=== PATIENT | male | born 1935 | race Caucasian/White ===

== ENCOUNTER 2023-10-04 03:40 | Inpatient (IN) | payer MEDICARE, OTHER, SELFPAY ==
[2023-10-04] VITALS (23 sets, daily range): BP systolic 94–135; BP diastolic 57–88; PULSE 93–118; RESP 18–39; TEMP 36.4–37.2; O2SAT 91–97; BMI 26.6
--- NOTE | 2023-10-04 | DI.RAD.S_ITS ---
PROCEDURE: XR CHEST 1V INDICATIONS: pneumonia TECHNIQUE: One view of the chest was acquired. COMPARISON: None. FINDINGS: Surgical changes and devices: None. Lungs and pleura: Left mid to lower lung zone opacities. Small left pleural effusion. Right lung is clear. No pneumothorax. Mediastinum: Mediastinal contours appear normal. Heart size is normal. Bones and chest wall: No suspicious bony lesions. Overlying soft tissues appear unremarkable. IMPRESSION: Left basilar opacities are suspicious for pneumonia or aspiration. Small left pleural effusion. Approved by: Santiago Sol M.D. on 10/04/2023 at 8:09
[2023-10-04] MEDS: SODIUM CHLORIDE 0.9% 250 ML 21 ML IV (05:53)
[2023-10-04] MEDS: cefTRIAXone 1,000 MG in SODIUM CHLORIDE 0.9% 100 ML 200 MG IV (05:53)
[2023-10-04 06:28] LABS: Allen Test for ABG Passed? Yes, Passed; Blood Gas Collection Site Right Brachial; Fractionated Inspired Oxygen 28; HCO3 ABG 38 mmol/L (23-27); Oxygen Saturation ABG 89 % (95-100); PCO2 ABG 56.7 mmHg (35-45); PO2 ABG 57 mmHg (80-100); TCO2 ABG 40 mmol/L (23-27); pH ABG 7.44 (7.35-7.45)
[2023-10-04 06:35] LABS: Add Manual Diff / Slide Review NO; Basophils Absolute Auto 100 /uL (0-100); Basophils Percent Auto 0.5 % (0-2); Eosinophils Absolute Auto 100 /uL (0-450); Eosinophils Percent Auto 0.5 % (2-4); Hematocrit 36.7 % (41-53); Hemoglobin 12.4 g/dL (13.5-17.5); Lymphocytes Absolute Auto 600 /uL (1100-4500); Lymphocytes Percent Auto 4.6 % (25-40); Mean Corpuscular HGB Conc 33.7 % (30-36); Mean Corpuscular Hemoglobin 30.1 PG (26-34); Mean Corpuscular Volume 89.4 fL (80-100); Monocytes Absolute Auto 1000 /uL (0-900); Monocytes Percent Auto 7.7 % (3-14); Neutrophils Absolute Auto 11100 /uL (1500-7000); Neutrophils Percent Auto 86.7 % (50-75); Platelet Count 306 X10^3/uL (150-400); Red Cell Distribution Width 13.1 % (11.6-14.8); White Blood Cell Count 12.8 X10^3/uL (4.5-11.0)
[2023-10-04 06:44] LABS: BUN Creatinine Ratio 15.8 (6-22); Blood Urea Nitrogen 12 mg/dL (9-20); Calcium 9.3 mg/dL (8.4-10.2); Chloride 86 mmol/L (98-107); Estimated Glomerular Filt Rate > 60 mL/min (>60); Glucose 202 mg/dL (80-110); HEMOLYSIS < 15 (0-50); Lactate (Lactic Acid) 2.1 mmol/L (0.7-2.1); Potassium 4.3 mmol/L (3.4-5.1); Sodium 126 mmol/L (137-145)
--- NOTE | 2023-10-04 06:49 | PC.ADMIT ---
[facility] Admission Note: The patient,Marino Roberts,88 y/o, was given written information regarding hospital policies, unit procedures and contact persons. Patient's smoking status: Former smoker. Vital Signs - 8 hr 10/04/23 05:00 10/04/23 05:05 10/04/23 05:28 Temperature 97.6 F Pulse Rate 103 H 109 H Respiratory Rate 18 39 H Blood Pressure 121/57 L Pulse Oximetry 94 97 Oxygen Delivery Method Nasal Cannula Nasal Cannula Humidification Oxygen Flow Rate 4 4 Fraction of Inspired Oxygen 36 10/04/23 06:23 Temperature Pulse Rate 103 H Respiratory Rate 20 Blood Pressure 135/68 Pulse Oximetry 97 Oxygen Delivery Method Oxygen Flow Rate 2 Fraction of Inspired Oxygen Patient is a Direct Admit from [place]. Brought to ICU room 228 at 0440. Oriented to self and situation, would reorient to place, month, and year when reminded, speech is delayed. Initially on 4L NC, SpO2 99%, able to titrated O2 down to 2L. ST 1st AVB, BBB, other vitals stable, see trends. Denies pain or shortness of breath, lung sounds exp wheezes throughout, except dim posterior LLL, loose non-productive cough. Condom catheter placed. Hospitalist saw patient via monitor. ABG done, labs drawn. ceftriaxone started.
[2023-10-04 06:53] LABS: MRSA (Nasal) PCR NOT DETECTED (Not Detect)
[2023-10-04 06:56] LABS: Carbon Dioxide 40 mmol/L (22-32)
--- NOTE | 2023-10-04 07:12 | P.HP_ITS ---
History of Present Illness History of Present Illness Date Patient Seen: 10/04/23 Time Patient Seen: 06:00 Chief complaint: Full code Narrative: 88 y/o with PMH of HTN, DM, VTE and recent COVID, had course of Paxlovid a month ago, who presented to [facility] ED with EMS called by patient's daughter. She reported on him having worsening cough and shortness of breath in the last several days, being confused, taking his 's oxygen. Today his was medevac to another hospital with pneumonia and respiratory failure. He was requiring 4 L of oxygen in the ED and I was asked to directly admit him to ICU for pending respiratory failure. On admission he is unreliable historian, likely encephalopathic, tachypneic and tachycardic but not hypotensive. [facility] Social History household members: spouse and children Smoking Status: Former smoker alcohol intake: never Meds Home Medications and Allergies Home Medications Medication Instructions Recorded Confirmed Type TRIAMCINOLONE ACETONIDE 0.1 TP BID ##0 08/21/10 History (#ARISTOCORT) Verapamil HCl (#VERAPAMIL HCL) 240 mg PO Q DAY ##0 08/21/10 History almotriptan malate 12.5 mg tablet 12.5 mg PO PRN ##0 08/21/10 History (Axert) aspirin 81 mg tablet,delayed 81 mg PO QDAY ##0 08/21/10 History release Allergies Allergy/AdvReac Type Severity Reaction Status Date / Time INGREDIENT: NKDA - NO KNOWN Allergy Unknown Uncoded 08/03/17 12:18 DRUG ALLERGIES Review of Systems Review of Systems Narrative: Unobtainable due to encephalopathy Exam Vital Signs (past 8 hours): - 10/04/23 05:00 10/04/23 05:05 10/04/23 05:28 Temperature 97.6 F Pulse Rate 103 H 109 H Respiratory Rate 18 39 H Blood Pressure 121/57 L Pulse Oximetry 94 97 Oxygen Delivery Method Nasal Cannula Nasal Cannula Humidification Oxygen Flow Rate 4 4 Fraction of Inspired Oxygen 36 10/04/23 06:23 Temperature Pulse Rate 103 H Respiratory Rate 20 Blood Pressure 135/68 Pulse Oximetry 97 Oxygen Delivery Method Oxygen Flow Rate 2 Fraction of Inspired Oxygen Fraction of Inspired Oxygen 36 SaO2/FiO2 Ratio 261 Oxygen Delivery Method Nasal Cannula,Humidification Oxygen Flow Rate 2 Const Other: not in distress HENMT Other: normocephalic Neck Other: supple Resp Other: tachypnea, rhonchi Cardio Other: borderline tachycardic, regular Extrem Other: w/o swelling Psych Other: encephalopathic Objective Labs 10/04/23 06:17 10/04/23 06:17 Labs: Laboratory Results - last 24 hr 10/04/23 10/04/23 10/04/23 05:00 06:03 06:17 WBC 12.8 H RBC 4.10 L Hgb 12.4 L Hct 36.7 L MCV 89.4 MCH 30.1 MCHC 33.7 RDW 13.1 Plt Count 306 Neut % (Auto) 86.7 H Lymph % (Auto) 4.6 L [place] % (Auto) 7.7 Eos % (Auto) 0.5 L Baso % (Auto) 0.5 Neut # (Auto) 32978 H Lymph # (Auto) 600 L [place] # (Auto) 1000 H Eos # (Auto) 100 Baso # (Auto) 100 ABG Sample Site Right brachial ABG pH 7.44 ABG pCO2 56.7 H ABG pO2 57 L ABG HCO3 38 H ABG Total CO2 40 H ABG O2 Saturation 89 L ABG Base Excess 14.0 H FiO2 28 Sodium 126 L Potassium 4.3 Chloride 86 L Carbon Dioxide 40 H* BUN 12 Creatinine 0.76 Estimated GFR > 60 BUN/Creatinine Ratio 15.8 Glucose 202 H Lactate 2.1 Calcium 9.3 Magnesium 2.0 Nasal Screen MRSA (PCR) Not detected Assessment & Plan Assessment and plan (1) Acute hypoxemic respiratory failure: Status: Acute (2) Pneumonia: Status: Acute (3) Diabetes: Status: Acute (4) HTN (hypertension): Status: Acute (5) Acute metabolic encephalopathy: Status: Acute (6) Hyponatremia: Status: Acute Assessment & Plan narrative: LLL PNA, Parapneumonic Effusion, Acute Hypoxemic Respiratory Failure - recent COVID - started on Rocephin and Zithromax in ED, to continue with Zosyn and vancomycin - 2 BCs taken at [facility] pending - O2 for sats > 92%, 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
--- NOTE | 2023-10-04 07:56 | P.HP_ITS ---
History of Present Illness History of Present Illness Date Patient Seen: 10/04/23 Chief complaint: Full code Narrative: From night doctor: 88 y/o with PMH of HTN, DM, VTE and recent COVID, had course of Paxlovid a month ago, who presented to [facility] ED with EMS called by patient's daughter. She reported on him having worsening cough and shortness of breath in the last several days, being confused, taking his 's oxygen. Today his was medevac to another hospital with pneumonia and respiratory failure. He was requiring 4 L of oxygen in the ED and I was asked to directly admit him to ICU for pending respiratory failure. On admission he is unreliable historian, likely encephalopathic, tachypneic and tachycardic but not hypotensive. Additional information: The patient really is unable to provide any additional information. He has not sure if he was in the hospital currently were at home. He can not really speak to his current symptoms or what has been happening recently. He appears chronically ill, dehydrated, and comfortable on 2 L of oxygen with nonlabored breathing. [facility] Social History household members: spouse and children Smoking Status: Former smoker alcohol intake: never Meds Home Medications and Allergies Home Medications Medication Instructions Recorded Confirmed Type TRIAMCINOLONE ACETONIDE 0.1 TP BID ##0 08/21/10 History (#ARISTOCORT) Verapamil HCl (#VERAPAMIL HCL) 240 mg PO Q DAY ##0 08/21/10 History almotriptan malate 12.5 mg tablet 12.5 mg PO PRN ##0 08/21/10 History (Axert) aspirin 81 mg tablet,delayed 81 mg PO QDAY ##0 08/21/10 History release Allergies Allergy/AdvReac Type Severity Reaction Status Date / Time No Known Drug Allergies Allergy Verified 10/04/23 08:07 Review of Systems Review of Systems Narrative: Not really obtainable due to his somnolence and lack of general participation in answering questions. Exam Vital Signs (past 8 hours): - 10/04/23 05:00 10/04/23 05:05 10/04/23 05:28 Temperature 97.6 F Pulse Rate 103 H 109 H Respiratory Rate 18 39 H Blood Pressure 121/57 L Pulse Oximetry 94 97 Oxygen Delivery Method Nasal Cannula Nasal Cannula Humidification Oxygen Flow Rate 4 4 Fraction of Inspired Oxygen 36 10/04/23 06:23 Temperature Pulse Rate 103 H Respiratory Rate 20 Blood Pressure 135/68 Pulse Oximetry 97 Oxygen Delivery Method Oxygen Flow Rate 2 Fraction of Inspired Oxygen Fraction of Inspired Oxygen 36 SaO2/FiO2 Ratio 261 Oxygen Delivery Method Nasal Cannula,Humidification Oxygen Flow Rate 2 Narrative Exam Narrative: NAD, somnolent but arousable. He appears dehydrated and chronically ill. He was not labored in breathing in his on 2 L of oxygen. Normocephalic skull, EOMI, anicteric sclera, symmetric pupils. Oropharynx unremarkable, no droop. Neck supple, midline trachea, no adenopathy. Lungs with diminished breath sounds and some wheezing, normal rate and effort. Heart regular, no murmur gallop or rub. Abdomen is soft, non distended and non tender. Extremities are free of edema. Skin is free of rash or lesions. Joints are not swollen or deformed. Judgment appears to be abnormal. Objective Imaging Chest x-ray: Radiologist's impression: Left basilar opacities are suspicious for pneumonia or aspiration. Small left pleural effusion. Labs 10/04/23 06:17 10/04/23 06:17 Labs: Laboratory Results - last 24 hr 10/04/23 10/04/23 10/04/23 05:00 06:03 06:17 WBC 12.8 H RBC 4.10 L Hgb 12.4 L Hct 36.7 L MCV 89.4 MCH 30.1 MCHC 33.7 RDW 13.1 Plt Count 306 Neut % (Auto) 86.7 H Lymph % (Auto) 4.6 L [place] % (Auto) 7.7 Eos % (Auto) 0.5 L Baso % (Auto) 0.5 Neut # (Auto) 59032 H Lymph # (Auto) 600 L [place] # (Auto) 1000 H Eos # (Auto) 100 Baso # (Auto) 100 ABG Sample Site Right brachial ABG pH 7.44 ABG pCO2 56.7 H ABG pO2 57 L ABG HCO3 38 H ABG Total CO2 40 H ABG O2 Saturation 89 L ABG Base Excess 14.0 H FiO2 28 Sodium 126 L Potassium 4.3 Chloride 86 L Carbon Dioxide 40 H* BUN 12 Creatinine 0.76 Estimated GFR > 60 BUN/Creatinine Ratio 15.8 Glucose 202 H Lactate 2.1 Calcium 9.3 Magnesium 2.0 Nasal Screen MRSA (PCR) Not detected Assessment & Plan Assessment & Plan narrative: 1. Recent Covid pneumonia (postiive August 29) 2. Pneumonia, present on admission and active. 3. Acute hypoxic respiratory failure, present on admission and active. 4. Hypovolemic hyponatremia, present on admission and active. 5. Sacral decubitus, present on admission and active. 6. Acute metabolic encephalopathy, present on admission and active. Plan: -IV antibiotics and blood cultures. -CT PA to rule out pulmonary embolism and evaluate the lung parenchyma. -normal saline infusion and monitor sodium and encephalopathy. He had a false to full resuscitation. We will attempt to reach his . Time Spent With Patient Time with patient: 30 to 49 minutes with 50% spent counseling/coordinating care Quality MIPS - Admit I confirm the patient?s Advance Care Plan is present, Code status is documented, Surrogate decision maker is in patient?s record [If Yes, STOP here]: No The patient?s Advance Care plan is not present because I confirmed today that the patient does not wish or was not able to name a surrogate decision maker or provide an Advance Care Plan.: Yes [facility] - Meds 'Current medications' to include all prescriptions, [id number] products, herbals, cannabis/cannabidiol products, and vitamin/mineral/dietary (nutritional) supplements. I have utilized all available resources to obtain, update, or review the patient?s current medications. [If Yes, STOP here]: Yes
--- NOTE | 2023-10-04 07:59 | DI.ECHO.S_ITS ---
[place] [facility] [facility] : : [id number] : [place] : : [id number] : : Phone: [phone] Echocardiogram Report + + :Name: MILO PURCELL Study Date: 10/04/2023 Height: 71.5 in: :[facility] ReadingLocation: Weight: 196 lb : : Gender: Male BSA: 2.1 m2 : :: 1935 Age: 88 yrs BP: 113/62 mmHg: :Reason For Study: DYSPNEA : :Ordering Physician: BETHANY, : :SARAH Meyer Performed By: Michell Philippe : :Referring: SARAH BILLINGS : + + Interpretation Summary This is a technically difficult study characterized by limited endocardial visualization. Next time consider Definity echo contrast. Indeterminate tachycardic rhythm with wide QRS complexes. Normal LV size and mildly increased wall thickness. Normal wall motion and LV systolic function. Ejection fraction is 65-70%. Moderate right ventricular enlargement with evidence of Heaton sign concerning for pulmonary embolism. Aortic valve leaflets are mildly thickened and calcified but open well. Unable to estimate PA systolic pressure due to lack of significant tricuspid regurgitant jet. No prior study available for comparison. Procedure: A two-dimensional transthoracic echocardiogram with color flow and Doppler was performed. The study quality was technically difficult. Most of the acoustic windows were suboptimal, but the best imaging was obtained from the subcostal window. There is no prior echocardiogram noted for this patient. The heart rate ranged between 100-107 bpm during the study. Left Ventricle: The left ventricle is normal in size. There is mild concentric left ventricular hypertrophy. The left ventricle is hyperdynamic. The ejection fraction is estimated to be 65-70%. Diastolic function could not be accurately assessed due to tachycardia. Right Ventricle: The right ventricle is moderately dilated. The right ventricular systolic function is normal. Atria: The left atrial size is normal. The right atrium is mildly dilated. There is no Doppler evidence for an interatrial shunt. Mitral Valve: The mitral valve is normal in structure and function. There is trace mitral regurgitation. Aortic Valve: The aortic valve opens well. There is no aortic valve stenosis. No aortic regurgitation is present. Tricuspid Valve: The tricuspid valve leaflets are thin and pliable. Pulmonary artery pressures cannot be estimated because of the lack of a measurable TR jet velocity. No tricuspid regurgitation. Pulmonic Valve: The pulmonic valve is not well visualized. Great Vessels: The aortic root is normal size. The ascending aorta could not be visualized. The IVC is dilated (diameter is greater than 2.1 cm) yet it collapses greater than 50% with a sniff. This suggests a right atrial pressure of 8 mm Hg. Pericardium/ Pleura There is no pericardial effusion. There is no pleural effusion. MMode/2D Measurements & Calculations LVIDd: 4.2 cm LVOT diam: 2.1 cm LVIDs: 2.8 cm Ao root diam: 3.4 cm FS: 32.6 % IVSd: 1.1 cm LVPWd: 1.1 cm LV marquez. diameter/BSA (cm/m^2): 2.0 LV sys. diameter/BSA (cm/m^2): 1.3 LA A2 area: 19.9 cm2 RA long axis: 5.6 cm LA A4 area: 17.6 cm2 RA area: 22.7 cm2 LA length (vol): 5.0 cm RA vol: 78.3 ml LA vol: 59.2 ml RA : 37.2 ml/m2 LA vol index: 28.1 ml/m2 IVC diam: 2.9 cm RVD1 (basal): 4.4 cm RVD2 (mid): 3.7 cm TAPSE: 2.0 cm Doppler Measurements & Calculations Ao V2 max: 150.2 cm/sec LVOT Max Devon: 128.6 cm/sec Ao V2 mean: 114.5 cm/sec LV V1 max P.6 mmHg Ao max P.0 mmHg LV V1 VTI: 22.1 cm Ao mean P.6 mmHg ELISE(I,D): 3.1 cm2 Ao V2 VTI: 24.8 cm ELISE(V,D): 3.0 cm2 sev ratio: 0.89 ELISE indexed to BSA (cm^2/m^2): 1.5 Med Peak E' Devon: 16.0 cm/sec PA V2 max: 127.3 cm/sec Lat Peak E' Devon: 9.4 cm/sec PA V2 mean: 88.5 cm/sec PA mean P.6 mmHg PA pr(Accel): 43.0 mmHg SV(LVOT): 77.0 ml Electronically signed by: Myriam Curtis M.D. on Reading Physician:10/04/2023 03:14 PM
[2023-10-04 08:04] LABS: Reflexed Lactate in 2 Hours Y
[2023-10-04] MEDS: SODIUM CHLORIDE 0.9% 1,000 ML 100 ML IV ×2 (08:17→18:07)
[2023-10-04] MEDS: ENOXAPARIN 40 MG/0.4 ML SYRINGE SUBCUT (08:17)
[2023-10-04 08:26] LABS: Hemoglobin A1C% w Est Avg Glu 7.2 % (4.0-6.0)
[2023-10-04 08:31] LABS: Sodium Urine Random 10 mmol/L (30-90)
[2023-10-04 08:59] LABS: Lactate 2HR (Lactic Acid Rflx) 1.8 mmol/L (0.7-2.1)
[2023-10-04] MEDS: PIPERACILLIN/TAZO 4.5 GM in SODIUM CHLORIDE 0.9% 100 ML IV (09:03)
[2023-10-04] MEDS: SODIUM CHLORIDE 0.9% FLUSH 10 ML IV ×2 (09:14→20:19)
[2023-10-04] MEDS: VANCOMYCIN 2,000 MG/400 ML PIGGYBACK 200 MG IV (09:17)
[2023-10-04] MEDS: ASPIRIN EC 81 MG TABLET PO (09:18)
[2023-10-04] MEDS: ALBUTEROL/IPRATROPIUM 3 ML AMPUL INH ×5 (09:46→23:53)
--- NOTE | 2023-10-04 11:18 | DI.CT.S_ITS ---
PROCEDURE: CT ANGIO CHEST PE PROTOCOL INDICATIONS: Hypoxia TECHNIQUE: After the administration of intravenous contrast, 2 mm thick sections acquired from the pulmonary apices to the posterior costophrenic angles. 3-dimensional maximum intensity projection (MIP) coronal and sagittal reformats were then acquired through the thorax. For radiation dose reduction, the following was used: automated exposure control, adjustment of mA and/or kV according to patient size. COMPARISON: [facility], CR, XR CHEST 1V, 10/04/2023, 6:57. FINDINGS: Image quality: Diagnostic. Pulmonary arteries: Pulmonary arteries are normal in size, and demonstrate no intraluminal filling defects to suggest central pulmonary embolism. Lower Neck: No enlarged lymph nodes. Thyroid: No thyroid nodules which require sonographic follow up, per consensus guidelines. Axillae: No enlarged lymph nodes. Chest Wall: Unremarkable. Bones: Unremarkable. Lungs and Pleura: Small to moderate left pleural effusion. There is dense consolidation in the posterior left lower lobe. Mild dependent atelectasis is seen in the remainder of the lungs. Heart: Heart size is normal. No pericardial effusion. Mild coronary artery calcifications. Thoracic Vessels: No aortic aneurysm. Mediastinum and Jessi: No enlarged lymph nodes. Esophagus: No wall thickening. No hiatal hernia. Upper Abdomen: Visualized upper abdomen solid organs and bowel loops appear normal. Simple cyst is seen at the superior pole of left kidney. IMPRESSION: 1. No acute pulmonary embolus. 2. Left lower lobe consolidation is suspicious for aspiration or pneumonia. 3. Small to moderate left parapneumonic effusion. Approved by: Santiago Sol M.D. on 10/04/2023 at 13:55
[2023-10-04] MEDS: INSULIN LISPRO 100 UNIT/ML 3ML VIAL SUBCUT ×3 (12:09→20:56)
[2023-10-04] MEDS: PIPERACILLIN/TAZO 3.375 GM in SODIUM CHLORIDE 0.9% 100 ML IV ×2 (12:13→20:18)
--- NOTE | 2023-10-04 13:06 | PC.NURSE ---
unable to place dominguez due to enlarged prostate, patient screamed get it out. Notified provider
--- NOTE | 2023-10-04 15:03 | DI.US.S_ITS ---
PROCEDURE: US CHEST COMPARISON: [facility], CT, CT ANGIO CHEST PE PROTOCOL, 10/04/2023, 12:47. INDICATIONS: DEO SKIN FOR THORACENTESIS FINDINGS: There is moderate left pleural effusion. Puncture site for thoracentesis was marked on scanning. IMPRESSION: Ultrasound marking for thoracentesis site. Dictated by: Juancho Adam M.D. on 10/04/2023 at 14:53 Approved by: Juancho Adam M.D. on 10/04/2023 at 14:56
--- NOTE | 2023-10-04 15:16 | CM.DANOTE ---
DCP Assessment note Pt is an 88yo M here with PMH of HTN, DM, VTE and recent COVID, had course of Paxlovid a month ago found to have pneumonia. Pt is presenting with AMS/confusion, dehydration, and PEs. Pt is full code. PCP Eyad Little Payer Medicare and for life LEGUILLON DEBEADER reviewed EMR. Pt currently on 2ltrs O2, getting IV abxs and fluids. Pt lives in [place] with spouse and daughter/caregiver Jackie ([phone]). Per chart review, pt spouse presented to the [place] ED as well and was medivach'd to [place]. Per RN, pt also has wounds on his backside. LEGUILLON DEBEADER spoke with Dtr Jackie, who was attempting to juggling being there for both her mother and father. Jackie reports at baseline, pt is not very active, likes to sleep a lot, and she helps with most/all ADLs. Jackie drives, cleans, cooks, and bathes pt at baseline. Pt has been sleeping much more lately since COVID pos diagnosis last August. 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 Pt uses a cane normally at baseline in public but furniture surfs at home. Pt has no diagnosis of dementia but pt has been off more than normal in the past month. Jackie reports pt was the easy one between him and pt's spouse and that spouse generally has higher medical needs than him. No hx of SNF or HH but would be open to both if needed. Dtr hopeful for priority boarding pass to return home. Dtr was tearful during phone conversation. P: medical POC continues to unfold. CM team will follow closely and coordinate with joan Mejia. [facility] Discharge Planning/Care Management CM Discharge Assessment Start: 10/04/23 14:59 Freq: Status: Active Protocol: Document 10/04/23 14:59 DAVION (Rec: 10/04/23 15:15 [id number]) Discharge Planning Assessment Assigned Outside Barrel Lathe Operator [facility] DPOA/Assigned Designee Name joan Mejia Contact Information [phone] Advance Directives? No History Provided By Patient,Medical Record Prior Living Arrangements House Household Members spouse,children Type of transporation used prior to Relies on Others admit Independent with ADL's No Is patient alert and oriented? No Needs Assistance With Bathing,Grooming,Meal Prep, Toileting,Managing Medications ,Home Chores / Shopping DME Already Rented / Owned Cane Discharge Plan Home Transportation Arrangement dtr in POV Additional Comment pending needs as medical POC unfolds Whiteboard Updated in Patient Room with No name and ext. # of Outside Barrel Lathe Operator Review Status In Process Please Provide Date Initial DC 10/04/23 Assessment Was Performed Next Review Type Continued Stay Review
[2023-10-04] MEDS: VANCOMYCIN 1,250 MG/250 ML PIGGYBACK 166.667 MG IV (20:55)
[2023-10-05] VITALS (25 sets, daily range): BP systolic 95–155; BP diastolic 53–78; PULSE 86–114; RESP 16–34; TEMP 36.4–36.9; O2SAT 90–98
[2023-10-05] MEDS: PIPERACILLIN/TAZO 3.375 GM in SODIUM CHLORIDE 0.9% 100 ML IV ×3 (04:41→20:11)
[2023-10-05] MEDS: SODIUM CHLORIDE 0.9% 1,000 ML 100 ML IV ×2 (06:07→18:04)
[2023-10-05] MEDS: ALBUTEROL/IPRATROPIUM 3 ML AMPUL INH ×4 (06:10→19:31)
--- NOTE | 2023-10-05 07:51 | PM.PN.1 ---
Subjective Subjective Interval history: Admitted with a pneumonia which appears to have developed after having COVID about a month ago. He has an associated left-sided small parapneumonic effusion. He is become extremely weak and was essentially bed-bound. He was a sacral ulcer as well. \he was more responsive today was able to eat. The patient denies a history of memory problems but does not know the year or month. The patient is breathing comfortably. No fevers overnight. Nares MRSA is negative. There is high suspicion for aspiration risk and aspiration pneumonia. Exam Vital Signs (past 8 hours): - 10/04/23 23:53 10/05/23 00:00 10/05/23 01:00 Temperature 97.8 F Pulse Rate 100 H 114 H 105 H Respiratory Rate 24 32 H 29 H Blood Pressure 141/78 H 116/66 Pulse Oximetry 93 92 92 Oxygen Delivery Method Nasal Cannula Oxygen Flow Rate 1.5 2 2 10/05/23 02:00 10/05/23 03:00 10/05/23 04:00 Temperature 97.6 F Pulse Rate 98 H 99 H 93 H Respiratory Rate 31 H 29 H 30 H Blood Pressure 103/59 L 95/53 L 114/63 Pulse Oximetry 94 92 92 Oxygen Delivery Method Oxygen Flow Rate 2 2 2 10/05/23 04:00 10/05/23 05:00 10/05/23 06:00 Temperature Pulse Rate 93 H 96 H Respiratory Rate 24 24 Blood Pressure 114/60 147/78 H Pulse Oximetry 94 92 Oxygen Delivery Method Nasal Cannula Oxygen Flow Rate 0 2 10/05/23 06:10 Temperature Pulse Rate 102 H Respiratory Rate 28 H Blood Pressure Pulse Oximetry 92 Oxygen Delivery Method Nasal Cannula Oxygen Flow Rate 1.5 Fraction of Inspired Oxygen 36 SaO2/FiO2 Ratio 255 Oxygen Delivery Method Nasal Cannula Oxygen Flow Rate 1.5 Narrative Exam Narrative: NAD, alert and oriented to person. Fluent speech, slow to answer. He appears to likely have chronic cognitive impairment. Lungs are clear, normal rate and effort. Less wheezing, diminished left base breath sounds. Heart is regular, no murmur gallop or rub. Abdomen is soft, non distended. Extremities are free of edema. LUNG POCUS: There is an effusion on the left, there is dispersion of the effusion today and a optimal pocket is not identified. The effusion is not loculated and appears to be clear and free of debris and mobile. Objective Imaging CT scan - chest: Radiologist's impression: 1. No acute pulmonary embolus. 2. Left lower lobe consolidation is suspicious for aspiration or pneumonia. 3. Small to moderate left parapneumonic effusion. Chest US:: Radiologist's impression: FINDINGS:There is moderate left pleural effusion. Puncture site for thoracentesis was marked on scanning. IMPRESSION: Ultrasound marking for thoracentesis site. Labs 10/04/23 06:17 10/04/23 06:17 Labs: Laboratory Results - last 24 hr 10/04/23 10/04/23 10/04/23 06:27 08:05 08:30 Hemoglobin A1c 7.2 H Lactate 1.8 Ur Random Sodium 10 L [facility], [facility] Social History household members: spouse and children Smoking Status: Former smoker alcohol intake: never Assessment & Plan Assessment & Plan narrative: 1. Recent Covid (postiive August 29), not present on admission are active. 2. Probable aspiration pneumonia, present on admission and active. 3. Parapneumonic effusion, present on admission and active 4. Acute hypoxic respiratory failure, present on admission and active. 5. Hypovolemic hyponatremia, present on admission and active. 6. Sacral decubitus, present on admission and active. 7. Acute metabolic encephalopathy versus cognitive impairment, present on admission and active. Plan: -IV antibiotics and blood cultures. Cultures remain negative. We will stop vancomycin and continue Zosyn. -speech evaluation, suspect aspiration. -repeat focused exam of left effusion, no great window to tap today. This does appear to be somewhat positional. I believe he was improving clinically. We will continue current care without major change in plan other than focusing antibiotics for aspiration. Full resuscitation. His is in [facility]. I spoke with his daughter, with whom he lives. She did give verbal permission for thoracentesis.
[2023-10-05] MEDS: INSULIN LISPRO 100 UNIT/ML 3ML VIAL SUBCUT ×3 (08:28→17:24)
[2023-10-05] MEDS: VANCOMYCIN 1,250 MG/250 ML PIGGYBACK 167 MG IV (08:28)
[2023-10-05] MEDS: ASPIRIN EC 81 MG TABLET PO (08:29)
[2023-10-05] MEDS: ENOXAPARIN 40 MG/0.4 ML SYRINGE SUBCUT (08:29)
--- NOTE | 2023-10-05 15:33 | DIET.CONS ---
Dietary Consultation Note Admission Date: 10/04/2023 03:40 Assessment: 88 y M admitted presenting with confusion/AMS, SOB, admitted with pneumonia. Nutrition screened for low MNA. PO intakes 50%, limited weight hx. PMH of DM, A1c 7.2% on 10/04/23. Noted sacral decubitus. Ht: 182.88 cm Wt: 92.3 kg BMI: 27.6 Last BM: 10/03/23 (10/04/23 06:00) MNA: 9 Phill Score: 16 Diet: 10/04/23 Breakfast Carbohydrate Consistent Diet Diet Modifications: Carbohydrate level: Medium (3 CHO) Reflex DM orders: No Food Texture: Level 7 - Regular Liquid Consistency: Level 0 - Thin Nutrition Percent Meal Consumed 50% 10/04/23 18:00 Percent Meal Consumed 50% 10/04/23 13:27 Labs: RBC 4.10 X10^6/uL (4.5-5.9) L 10/04/23 06:17 Hgb 12.4 g/dL (13.5-17.5) L 10/04/23 06:17 Hct 36.7 % (41-53) L 10/04/23 06:17 Creatinine 0.76 mg/dL (0.66-1.25) 10/04/23 06:17 Hemoglobin A1c 7.2 % (4.0-6.0) H 10/04/23 06:27 Lactate 1.8 mmol/L (0.7-2.1) 10/04/23 08:30 Nutrition Diagnosis: Inadequate oral intake r/t increased nutrient needs for healing aeb recorded po intakes of 50% x2, sacral decubitus Interventions: 1. Trial ONS, BID EER: [id number] kcals (20-22 kcals/kg per BMI) 90-110 g protein (1.25 g/ adjusted IBW per wound) Monitoring/Evaluations: ONS tolerance, po intakes Electronically Signed by: Agatha Dumont 10/05/23 15:33 Clinical Dietitian [address] [id number]
--- NOTE | 2023-10-05 18:25 | PC.NURSE ---
1800 Pt was sitting up in bed eating dinner when he began coughing uncontrollably. Provided suction, monitored O2 status, removed tray. It appears that pt aspirated some of the food he was eating. Spoke to Provider and received orders to make pt strict NPO pending speech evaluation tomorrow.
[2023-10-05] MEDS: SODIUM CHLORIDE 0.9% FLUSH 10 ML IV (20:11)
[2023-10-06] VITALS (23 sets, daily range): BP systolic 112–170; BP diastolic 58–74; PULSE 77–94; RESP 18–37; TEMP 36.4–37; O2SAT 89–96
[2023-10-06] MEDS: SODIUM CHLORIDE 0.9% 1,000 ML 100 ML IV (04:08)
[2023-10-06] MEDS: PIPERACILLIN/TAZO 3.375 GM in SODIUM CHLORIDE 0.9% 100 ML IV ×3 (04:09→20:36)
[2023-10-06] MEDS: INSULIN LISPRO 100 UNIT/ML 3ML VIAL SUBCUT (06:14)
[2023-10-06] MEDS: ALBUTEROL/IPRATROPIUM 3 ML AMPUL INH ×4 (07:00→19:16)
[2023-10-06] MEDS: ENOXAPARIN 40 MG/0.4 ML SYRINGE SUBCUT (08:36)
[2023-10-06] MEDS: SODIUM CHLORIDE 0.9% FLUSH 10 ML IV ×2 (08:37→20:37)
[2023-10-06 09:35] LABS: Add Manual Diff / Slide Review NO; Basophils Absolute Auto 100 /uL (0-100); Basophils Percent Auto 1.1 % (0-2); Eosinophils Absolute Auto 200 /uL (0-450); Eosinophils Percent Auto 2.6 % (2-4); Hematocrit 35.8 % (41-53); Hemoglobin 11.8 g/dL (13.5-17.5); Lymphocytes Absolute Auto 1100 /uL (1100-4500); Mean Corpuscular Hemoglobin 29.8 PG (26-34); Mean Corpuscular Volume 90.5 fL (80-100); Monocytes Absolute Auto 700 /uL (0-900); Monocytes Percent Auto 8.5 % (3-14); Neutrophils Absolute Auto 6000 /uL (1500-7000); Neutrophils Percent Auto 73.8 % (50-75); Platelet Count 297 X10^3/uL (150-400); Red Blood Cell Count 3.96 X10^6/uL (4.5-5.9); Red Cell Distribution Width 13.2 % (11.6-14.8); White Blood Cell Count 8.2 X10^3/uL (4.5-11.0)
[2023-10-06 09:45] LABS: BUN Creatinine Ratio 14.5 (6-22); Blood Urea Nitrogen 9 mg/dL (9-20); Calcium 8.9 mg/dL (8.4-10.2); Carbon Dioxide 36 mmol/L (22-32); Chloride 99 mmol/L (98-107); Estimated Glomerular Filt Rate > 60 mL/min (>60); Glucose 127 mg/dL (80-110); HEMOLYSIS < 15 (0-50); Magnesium 2.1 mg/dL (1.6-2.3); Potassium 4.2 mmol/L (3.4-5.1); Sodium 132 mmol/L (137-145)
--- NOTE | 2023-10-06 10:10 | SLP.IPNOTE ---
PIPE ROLLER recommendations as of 10/06/23 10:10am: 1. Pt is currently too somnolent to tolerate a modified barium swallow. In lieu of instrumental assessment, the following recommendations are based off of bedside assessment. 2. When seated upright 90 degrees, pt may have apple sauce or pudding for comfort in 1 tsp bites with 1:1 assistance. Ensure mouth is clear before providing another bite. 3. When seated upright 90 degrees, pt may have ice chips or 1 tsp sips of water via teaspoon with 1:1 assistance IMMEDIATELY FOLLOWING ORAL CARE. -Pt MUST receive oral care immediately before any ice or water -Pt is HIGHLY LIKELY to aspirate water. The body can typically tolerate aspiration of clean water from a clean oral cavity. Therefore, the patient's mouth must be cleaned immediately before providing water/ice chips to prevent the risk of developing or worsening aspiration pneumonia. 4. Continue with strict oral care, including tooth brushing. Use suction to clear oral cavity of saliva and toothpaste throughout oral care. 5. PO only for comfort measures as described above. Meds not recommended PO.
--- NOTE | 2023-10-06 11:48 | ST.IPIE ---
Visit Care Team Role Provider Type Pilar Little MD Primary Care Provider Physician Specialty: Family Practice Address: [facility] [address], [address] [place] [address], [place], [address] Email: [email or web address] Anatoly Mukherjee MD Admit Provider Physician Attending Provider Referring Provider Specialty: Internal Medicine Address: [address] [place] [address], [address] Email: [email or web address] Diagnoses Type 2 diabetes mellitus without complications (10/04/23) Hypo-osmolality and hyponatremia (10/04/23) Metabolic encephalopathy (10/04/23) Essential (primary) hypertension (10/04/23) Pneumonia, unspecified organism (10/04/23) Acute respiratory failure with hypoxia (10/04/23) IP Initial Evaluation Report MOBILITY SPECIALIST Clinical Swallow Evaluation Start: 10/06/23 09:19 Freq: Status: Active Protocol: Document 10/06/23 09:19 CG (Rec: 10/06/23 09:23 CG [id number]) Clinical Swallow Evaluation Session Time Visit Start Time 09:25 Visit Stop Time 09:55 Total Visit Minutes 30 Visit Information Visit Number 1 Referral Referring Provider Kvng (hospitalist) Reason for Referral s/sx aspiration, suspected aspiration PNA Setting Assessment Location Acute Care Visit Type Note Type Initial evaluation Next Note Type Next Note Type Treatment Note Patient Information Identification Type Name History Per H&P: 88 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 She reported on him having worsening cough and shortness of breath in the last several days, being confused, taking his 's oxygen. Today his was medevac to another hospital with pneumonia and respiratory failure. He was requiring 4 L of oxygen in the ED and I was asked to directly admit him to ICU for pending respiratory failure. On admission he is unreliable historian, likely encephalopathic, tachypneic and tachycardic but not hypotensive. Additional information: The patient really is unable to provide any additional information. He has not sure if he was in the hospital currently were at home. He can not really speak to his current symptoms or what has been happening recently. He appears chronically ill, dehydrated, and comfortable on 2 L of oxygen with nonlabored breathing. Pt was referred to due to suspicion for aspiration pneumonia, along with witnessed suspected aspiration event during a meal yesterday (10/05/23) at 1800 in which nurse note states: 1800 Pt was sitting up in bed eating dinner when he began coughing uncontrollably. Provided suction, monitored O2 status, removed tray. It appears that pt aspirated some of the food he was eating. Spoke to Provider and received orders to make pt strict NPO pending speech evaluation tomorrow. Subjective Observations Pt was reclined in bed upon entry to room after having just had labs drawn. Pt had not had recent oral care, so oral care was provided prior to PO trials. Pt was oriented only to his name. He was unable to state the year or the state. When asked where he was, he stated, at home. He kept his eyes closed throughout the majority of the evaluation unless directly verbally prompted to open them . He was heavily somnolent, though he did respond verbally to questions while keeping his eyes closed. Pt was repositioned upright in bed with bed controls before proceeding with evaluation. Reported by Patient/Caregiver Other Symptoms Choking,Coughing,History of aspiration or pneumonia Comment Nursing reports pt began coughing uncontrollably while eating dinner last night (10/04, 18:00). His chest X-ray from admission is also suspicious for aspiration. Pt was made NPO due to aspiration event. Current Diet NPO The IDDSI Framework Protocol: IDDSI.1 Objective Assessment Mental Status Confused,Lethargic Oral Integrity Oral residue,Thrush Dentition Missing teeth,Decay Lip Function Mild impairment Pucker Reduced strength Lip Retraction Reduced range of motion Tongue Function Mild impairment Tongue Lateralization Within normal limits Respiratory Sufficiency Moderate impairment Comment OME significant for the following: -Mildly weak oral musculature, but able to complete one-step oral mech tasks including lingual protrusion and lateralization -Pt is on O2 via NC -Vocal quality clear but weakened -Dentition demonstrates decay and some missing teeth. Oral residue was built up in decayed areas/pits of teeth prior to oral care -Suspect possible mild oral thrush? -Limited jaw opening -No cued cough performed, though reflexive cough during CSE was weak Food and Liquid Trials Position During Assessment Slightly reclined,In bed Liquids Trialed Ice chips,Thin (IDDSI 0) Solid Trials Purred (IDDSI 4) Administration Type Tea spoon Oral Impairment Moderately impaired Oral Phase Comments Ice chips: -delayed/discoordinated oral acceptance. Pt required verbal cues to open mouth and close mouth to receive ice chip -limited lingual movement upon receiving 50% of ice chips. Other 50% were characterized by much-like mastication pattern -Suspect discoordinated A-P lingual transfer of melted ice chip bolus Thin liquids (water) via 1/2 teaspoon sips from tsp (IDDSI 0): -delayed/discoordinated oral acceptance. Pt required verbal cues to open mouth and close mouth to receive sip of water from teaspoon, and did not create adequate oral suction to sip from spoon. Water had to be tipped from teaspoon into pt's mouth -Suspect discoordinated A-P lingual transfer of bolus -only 1/2 tsp tolerated at a time Thin liquids via small cup sip (IDDSI 0): -delayed/discoordinated oral acceptance. Pt required verbal cues to open mouth and close mouth to receive sip of water from cup, and did not create adequate oral suction to sip by himseld. Water again had to be partially tipped from the cup into pt's mouth -Suspect discoordinated A-P lingual transfer of bolus Applesauce (IDDSI 4): -delayed/discoordinated oral acceptance. Pt required verbal cues to open mouth and close mouth to receive applesauce from spoon -Suspect discoordinated A-P lingual transfer of bolus, though lingual movement appeared more organized than with thin liquids -Only 1 tsp tolerated at a time Pudding (IDDSI 4): -delayed/discoordinated oral acceptance. Pt required verbal cues to open mouth and close mouth to receive pudding from spoon -Suspect discoordinated A-P lingual transfer of bolus, though lingual movement appeared more organized than with thin liquids -Only 1 tsp tolerated at a time Pharyngeal Impairment Moderately impaired Pharyngeal Phase Comments Ice chips: -mild throat clear and weak cough immediately after approximately 50% of ice chip trials -suspect aspiration of thin liquids, though pt is not appropriate for MBS at this time to confirm -s/sx aspiration consistent with CXR from admission Thin liquids (water) via 1/2 teaspoon sips from tsp (IDDSI 0): -mild throat clear and weak cough immediately after majority of trials -suspect aspiration of thin liquids, though pt is not appropriate for MBS at this time to confirm -s/sx aspiration consistent with CXR from admission Thin liquids via small cup sip (IDDSI 0): -mild throat clear and weak cough immediately after all trials -Not tolerated as well as sips from teaspoon -increased discoordination of swallow timing compared to tsp sip -suspect aspiration of thin liquids, though pt is not appropriate for MBS at this time to confirm -s/sx aspiration consistent with CXR from admission Applesauce (IDDSI 4): -mild throat clear on one of 4 trials -otherwise, no overt s/sx aspiration/penetration -Silent aspiration cannot be ruled out without an instrumental assessment -appears well-tolerated compared to thin liquids when provided in single tsp bites with 1:1 assistance and pausing after swallows of each bite Pudding (IDDSI 4): -no overt s/sx aspiration/ penetration -Silent aspiration cannot be ruled out without an instrumental assessment -appears well-tolerated compared to thin liquids when provided in single tsp bites with 1:1 assistance and pausing after swallows of each bite Fatigue/Endurance Severe fatigue Results Beside swallow assessment is summarized as follows: -pt is suspected to be aspirating thin liquids -large sips of thin liquid were not trialed due to pt somnolence and concern for pt safety given current status and suspected aspiration PNA present on admission -solid boluses (aside from IDDSI 4 pudding and applesauce ) were not presented due to concern for pt safety 2/ somnolence and mental status -Recommending applesauce and pudding via teaspoon, one bite at a time, 1:1, for comfort -Recommending free water protocol for comfort in which pt may have 1/2 tsp sips of water or ice chips immediately following oral care -Pt unlikely to meet nutrition /hydration needs via PO means -pt's dysphagia and subsequent intake restrictions are largely a result of pt's current mental status and alertness level -MOBILITY SPECIALIST to follow to continue assessing least restrictive diet and assess whether pt becomes appropriate for modified barium swallow study for more objective assessment of swallow function based on overall level of alertness/ mental status The IDDSI Framework Protocol: IDDSI.1 Findings Swallowing Function Oropharyngeal phase dysphagia Severity of Swallow Impairment Moderately-severely impaired Contributing Factors to Swallow Reduced alertness or attention Impairment ,Difficulty following directions,Reduced oral strength/coordination/ sensation,Impaired airway protection Prognosis Guarded Based on Cognitive status,Family support,Bed bound,Age Impact on Safety and Functioning Risk for aspiration,Risk for inadequate nutrition/hydration Recommendations Instrumental Assessment Yes Swallowing Treatment Yes Other Recommendations 1. Pt is currently too somnolent to tolerate a modified barium swallow. In lieu of instrumental assessment, the following recommendations are based off of bedside assessment. 2. When seated upright 90 degrees, pt may have apple sauce or pudding for comfort in 1 tsp bites with 1:1 assistance. Ensure mouth is clear before providing another bite. 3. When seated upright 90 degrees, pt may have ice chips or 1 tsp sips of water via teaspoon with 1:1 assistance IMMEDIATELY FOLLOWING ORAL CARE. -Pt MUST receive oral care immediately before any ice or water -Pt is HIGHLY LIKELY to aspirate water. The body can typically tolerate aspiration of clean water from a clean oral cavity. Therefore, the patient's mouth must be cleaned immediately before providing water/ice chips to prevent the risk of developing or worsening aspiration pneumonia. 4. Continue with strict oral care, including tooth brushing . Use suction to clear oral cavity of saliva and toothpaste throughout oral care. 5. PO only for comfort measures as described above. Meds not recommended PO. Medication Recommendations Not Recommended by Mouth Discharge Recommendations Home with Hospice,Palliative care Education Patient/Caregiver Education Described results of evaluation,Family/caregivers expressed understanding of evaluation,Family/caregivers expressed agreement with goals & treatment plans Goals Short-term Goals 1. Pt will tolerate bites of applesauce and pudding without overt s/sx aspiration in order to increase pt comfort. 2. Pt will participate in modified barium swallow study as soon as mental status allows. 3. Pt, caregivers, and staff will benefit from continued MOBILITY SPECIALIST education re aspiration risks, free water protocol implementation, and importance of strict oral care. Long-term Goals 1. Pt will tolerate least restrictive diet in order to meet his nutrition/hydration needs.
--- NOTE | 2023-10-06 16:14 | PM.PN.1 ---
Subjective Subjective Interval history: Patient has no complaints today. He did not do well with SECOND CRUSHER today, he is likely aspirating. Has some increased lethargy. IV fluids stopped with some worsening LE edema. Exam Vital Signs (past 8 hours): - 10/06/23 08:22 10/06/23 09:00 10/06/23 09:00 Temperature 98.6 F Pulse Rate 77 79 Respiratory Rate 18 21 Blood Pressure Pulse Oximetry 95 94 Oxygen Delivery Method Nasal Cannula Oxygen Flow Rate 3 10/06/23 09:00 10/06/23 10:00 10/06/23 10:00 Temperature Pulse Rate 79 Respiratory Rate 28 H Blood Pressure 143/67 H 135/70 Pulse Oximetry 92 Oxygen Delivery Method Oxygen Flow Rate 10/06/23 11:00 10/06/23 11:00 10/06/23 11:18 Temperature Pulse Rate 83 Respiratory Rate 24 Blood Pressure 142/66 H Pulse Oximetry 95 94 Oxygen Delivery Method Nasal Cannula Oxygen Flow Rate 2 10/06/23 12:00 10/06/23 12:01 10/06/23 12:01 Temperature Pulse Rate 79 81 Respiratory Rate 25 H 24 Blood Pressure 170/74 H Pulse Oximetry 95 94 Oxygen Delivery Method Oxygen Flow Rate 10/06/23 13:00 10/06/23 14:00 10/06/23 15:00 Temperature Pulse Rate 82 92 H 84 Respiratory Rate 27 H 33 H 27 H Blood Pressure Pulse Oximetry 95 89 L 95 Oxygen Delivery Method Oxygen Flow Rate 10/06/23 15:25 10/06/23 15:25 10/06/23 15:49 Temperature Pulse Rate 91 H 86 Respiratory Rate 31 H 28 H Blood Pressure 131/66 Pulse Oximetry 94 95 Oxygen Delivery Method Nasal Cannula Oxygen Flow Rate 2 Fraction of Inspired Oxygen 36 SaO2/FiO2 Ratio 255 Oxygen Delivery Method Nasal Cannula Oxygen Flow Rate 2 Narrative Exam Narrative: NAD, alert and oriented to person. Fluent speech, slow to answer. He appears to likely have chronic cognitive impairment. Lungs are clear, normal rate and effort. Less wheezing, diminished left base breath sounds. Heart is regular, no murmur gallop or rub. Abdomen is soft, non distended. Extremities are free of edema. Objective Labs 10/06/23 09:13 10/06/23 09:13 Labs: Laboratory Results - last 24 hr 10/06/23 09:13 WBC 8.2 RBC 3.96 L Hgb 11.8 L Hct 35.8 L MCV 90.5 MCH 29.8 MCHC 33.0 RDW 13.2 Plt Count 297 Neut % (Auto) 73.8 Lymph % (Auto) 14.0 L [place] % (Auto) 8.5 Eos % (Auto) 2.6 Baso % (Auto) 1.1 Neut # (Auto) 6000 Lymph # (Auto) 1100 [place] # (Auto) 700 Eos # (Auto) 200 Baso # (Auto) 100 Sodium 132 L Potassium 4.2 Chloride 99 Carbon Dioxide 36 H BUN 9 Creatinine 0.62 L Estimated GFR > 60 BUN/Creatinine Ratio 14.5 Glucose 127 H Calcium 8.9 Magnesium 2.1 PFSH Social History household members: spouse and children Smoking Status: Former smoker alcohol intake: never Assessment & Plan Assessment & Plan narrative: 1. Recent Covid (postiive August 29), not present on admission are active. 2. Probable aspiration pneumonia, present on admission and active. 3. Parapneumonic effusion, present on admission and active 4. Acute hypoxic respiratory failure, present on admission and active. 5. Hypovolemic hyponatremia, present on admission and active. 6. Sacral decubitus, present on admission and active. 7. Acute metabolic encephalopathy versus cognitive impairment, present on admission and active. Plan: -Continue on zosyn, vanco discontinued yesterday. -discussed with speech, suspect aspiration. Continue zosyn and see if improvement in lethargy to tolerate barium swallow. Otherwise goals of care discussions if still failing swallow. -repeat focused exam of left effusion, no great window to tap today. This does appear to be somewhat positional. Full resuscitation. His is in [facility]. Alternative surrogate is his daughter.
[2023-10-07] VITALS (19 sets, daily range): BP systolic 105–153; BP diastolic 56–82; PULSE 82–105; RESP 20–33; TEMP 36.2–37.1; O2SAT 92–97
[2023-10-07] MEDS: PIPERACILLIN/TAZO 3.375 GM in SODIUM CHLORIDE 0.9% 100 ML IV ×3 (04:21→20:48)
[2023-10-07 04:36] LABS: Add Manual Diff / Slide Review NO; Basophils Absolute Auto 100 /uL (0-100); Basophils Percent Auto 1.3 % (0-2); Eosinophils Absolute Auto 200 /uL (0-450); Eosinophils Percent Auto 2.5 % (2-4); Hematocrit 35.1 % (41-53); Hemoglobin 11.7 g/dL (13.5-17.5); Lymphocytes Absolute Auto 1500 /uL (1100-4500); Lymphocytes Percent Auto 17.8 % (25-40); Mean Corpuscular HGB Conc 33.3 % (30-36); Mean Corpuscular Hemoglobin 29.8 PG (26-34); Mean Corpuscular Volume 89.3 fL (80-100); Monocytes Absolute Auto 600 /uL (0-900); Monocytes Percent Auto 7.4 % (3-14); Neutrophils Absolute Auto 5900 /uL (1500-7000); Platelet Count 346 X10^3/uL (150-400); Red Blood Cell Count 3.93 X10^6/uL (4.5-5.9); Red Cell Distribution Width 13.2 % (11.6-14.8); White Blood Cell Count 8.3 X10^3/uL (4.5-11.0)
[2023-10-07 04:50] LABS: BUN Creatinine Ratio 12.1 (6-22); Blood Urea Nitrogen 8 mg/dL (9-20); Calcium 9.2 mg/dL (8.4-10.2); Carbon Dioxide 36 mmol/L (22-32); Chloride 98 mmol/L (98-107); Estimated Glomerular Filt Rate > 60 mL/min (>60); Glucose 119 mg/dL (80-110); HEMOLYSIS < 15 (0-50); Magnesium 2.2 mg/dL (1.6-2.3); Potassium 4.3 mmol/L (3.4-5.1); Sodium 131 mmol/L (137-145)
[2023-10-07] MEDS: ASPIRIN EC 81 MG TABLET PO (08:39)
[2023-10-07] MEDS: ENOXAPARIN 40 MG/0.4 ML SYRINGE SUBCUT (08:39)
[2023-10-07] MEDS: SODIUM CHLORIDE 0.9% FLUSH 10 ML IV ×2 (08:40→20:50)
[2023-10-07] MEDS: ALBUTEROL/IPRATROPIUM 3 ML AMPUL INH ×4 (09:28→22:13)
--- NOTE | 2023-10-07 11:34 | ST.IPDYTX ---
Visit Care Team Role Provider Type Pilar Little MD Primary Care Provider Physician Specialty: Family Practice Address: [address], [address] [facility] [facility] [address], [place], [address] Email: [email or web address] Anatoly Mukherjee MD Admit Provider Physician Attending Provider Referring Provider Specialty: Internal Medicine Address: [address] [place], [address] Email: [email or web address] MONITOR Dysphagia Treatment EKG MONITOR Dysphagia Treatment Start: 10/07/23 11:20 Freq: Status: Active Protocol: Document 10/07/23 11:21 MA (Rec: 10/07/23 11:34 MA [id number]) Dysphagia Treatment Session Time Visit Start Time 10:35 Visit Stop Time 10:55 Total Visit Minutes 20 Visit Information Visit Number 2 Setting Assessment Location Acute Care Patient Information Subjective Observations Pt was reclined in bed upon ST entry to room after having just been on the commode. Oriented to hospital and name, however stated he did not know the year and reported he was in [facility],. He kept his eyes closed throughout the majority of the evaluation unless directly verbally prompted to open them. He was somnolent, though he did respond verbally to questions while keeping his eyes closed. Pt was repositioned upright in bed with bed controls before proceeding with PO trials. Treatment Liquids Trialed Thin (IDDSI 0) Solids Trialed Purred (IDDSI 4) Administration Type Cup Single Sip,Self-Feeding Treatment Activities Therapeutic PO trials, staff education The IDDSI Framework Protocol: IDDSI.[address] assessed swallow function with therapeutic PO trials of pureed solids and thin liquids in order to determine safest and most efficient least restrictive diet. Pt consumed 4 oz of applesauce and pudding and about 4 oz of thin water via cup. Pt initially fed by ST, however able to feed self when placed in hands. Pt kept eyes slightly opened. For pureed solids he demonstrated adequate bite size and rate, prolonged bolus manipulation with munching pattern, extended ap transport. Delayed cough x2 as trials progressed . Nursing reports Pt has been intermittently coughing even without eating/drinking which may be d/t Pt having Covid recently. She also reported he took meds in applesauce without any difficulties. For thin water via cup Pt drank from cup independently, small sips, good oral acceptance and containment, extended ap transport with suspected loss of bolus resulting in premature spillage, audible swallow with 1x throat clear and delaying coughing. Pt continues to appear too lethargic to participate in MBS. ST recommends pureed solids and continuation of free water protocol- Pt may have thin water 30 minutes before/after meals after oral care. ST recommends supervision with all meals and to not have Pt fed if not awake/alert. ST recommends no safe PO diet if changes in medical status/respiration. ST communicated recommendations with MD and nursing. Recommendations Recommendations Upgrade Diet Order Liquids Order Thin (IDDSI 0) Diet Order Pureed (IDDSI 4) Medication Recommendations As Tolerated Comments Thin water only Aspiration Precautions Recommended Precautions Upright at 90 Degrees, Alternate Liquids/Solids,Small Bites/Sips Treatment Plan Appropriate for Continued Therapy Yes
[2023-10-07] MEDS: INSULIN LISPRO 100 UNIT/ML 3ML VIAL SUBCUT ×3 (11:39→20:48)
--- NOTE | 2023-10-07 14:05 | DIET.CONS2 ---
Dietary Inpatient Consultation Note Admission Date: 10/04/2023 03:40 Nutrition f/u. Pt was NPO from evening of 10/04 to this afternoon per bedside assessment by RUN BOAT OPERATOR. Pureed diet started for lunch. Per RN, pt ate 100% of lunch tray (turkey, potatoes, carrots, juice, pudding). Will continue to monitor intakes and BG. ONS as tolerated to support adequate intake Diet: 10/07/23 Lunch Dysphagia Diet Diet Modifications: Only thin water Food Texture: Level 4 - Pureed Liquid Consistency: Level 0 - Thin Electronically Signed by: Agatha Dumont 10/07/23 14:05 Clinical Dietitian [address] [address]
--- NOTE | 2023-10-07 15:30 | PM.PN.1 ---
Subjective Subjective Interval history: Patient has no complaints today. Much more alert today, tolerated a pureed meal. Currently being treated for aspiration pneumonia. Exam Vital Signs (past 8 hours): - 10/07/23 08:00 10/07/23 08:00 10/07/23 08:00 Temperature 97.9 F Pulse Rate 92 H Respiratory Rate 31 H Blood Pressure 153/82 H Pulse Oximetry 92 Oxygen Delivery Method Oxygen Flow Rate 10/07/23 09:28 10/07/23 10:00 10/07/23 11:45 Temperature 97.8 F Pulse Rate 96 H 91 H Respiratory Rate 24 31 H Blood Pressure 127/67 Pulse Oximetry 94 97 Oxygen Delivery Method Nasal Cannula Oxygen Flow Rate 2 10/07/23 11:45 10/07/23 12:00 10/07/23 15:19 Temperature Pulse Rate 96 H 93 H 104 H Respiratory Rate 30 H 33 H 25 H Blood Pressure Pulse Oximetry 94 97 96 Oxygen Delivery Method Nasal Cannula Oxygen Flow Rate 2 Fraction of Inspired Oxygen 36 SaO2/FiO2 Ratio 255 Oxygen Delivery Method Nasal Cannula Oxygen Flow Rate 2 Narrative Exam Narrative: NAD, alert and oriented to person. Fluent speech, slow to answer. He appears to likely have chronic cognitive impairment. Lungs are clear, normal rate and effort. Less wheezing, diminished left base breath sounds. Heart is regular, no murmur gallop or rub. Abdomen is soft, non distended. Extremities are free of edema. Objective Labs 10/07/23 03:50 10/07/23 03:50 Labs: Laboratory Results - last 24 hr 10/07/23 03:50 WBC 8.3 RBC 3.93 L Hgb 11.7 L Hct 35.1 L MCV 89.3 MCH 29.8 MCHC 33.3 RDW 13.2 Plt Count 346 Neut % (Auto) 71.0 Lymph % (Auto) 17.8 L [place] % (Auto) 7.4 Eos % (Auto) 2.5 Baso % (Auto) 1.3 Neut # (Auto) 5900 Lymph # (Auto) 1500 [place] # (Auto) 600 Eos # (Auto) 200 Baso # (Auto) 100 Sodium 131 L Potassium 4.3 Chloride 98 Carbon Dioxide 36 H BUN 8 L Creatinine 0.66 Estimated GFR > 60 BUN/Creatinine Ratio 12.1 Glucose 119 H Calcium 9.2 Magnesium 2.2 PFSH Social History household members: spouse and children Smoking Status: Former smoker alcohol intake: never Assessment & Plan Assessment & Plan narrative: 1. Recent Covid (postiive August 29), not present on admission are active. 2. Sepsis secondary to aspiration pneumonia, present on admission and active. 3. Parapneumonic effusion, present on admission and active 4. Acute hypoxic respiratory failure, present on admission and active. 5. Hypovolemic hyponatremia, present on admission and active. 6. Sacral decubitus, present on admission and active. 7. Acute metabolic encephalopathy with chronic cognitive impairment, present on admission and active. Plan: -Continue on zosyn, vanco discontinued for aspiration pneumonia for 5 days. Can transition to PO antibiotics at discharge given he is tolerating a diet with FIELD PIPE LINES SUPERVISOR. FIELD PIPE LINES SUPERVISOR to re-evaluate over the weekend as well. -Improvement today with lethargy, ordered PT/OT to start tomorrow. -aspiration was attempted of pleural effusion but has been improving with antibiotic therapy Full resuscitation. His is in [facility]. Alternative surrogate is his daughter.
[2023-10-08] VITALS (22 sets, daily range): BP systolic 121–134; BP diastolic 53–81; PULSE 82–112; RESP 19–28; TEMP 36.4–37.2; O2SAT 82–98
[2023-10-08] MEDS: PIPERACILLIN/TAZO 3.375 GM in SODIUM CHLORIDE 0.9% 100 ML IV ×3 (04:11→19:57)
[2023-10-08] MEDS: ALBUTEROL/IPRATROPIUM 3 ML AMPUL INH ×4 (07:36→19:14)
[2023-10-08] MEDS: INSULIN LISPRO 100 UNIT/ML 3ML VIAL SUBCUT ×3 (07:45→16:42)
[2023-10-08] MEDS: ENOXAPARIN 40 MG/0.4 ML SYRINGE SUBCUT (08:45)
[2023-10-08] MEDS: ASPIRIN EC 81 MG TABLET PO (08:45)
[2023-10-08] MEDS: SODIUM CHLORIDE 0.9% FLUSH 10 ML IV ×3 (09:01→20:34)
--- NOTE | 2023-10-08 11:55 | PT.IIE ---
Current Diagnoses Type 2 diabetes mellitus without complications (10/04/23) Hypo-osmolality and hyponatremia (10/04/23) Metabolic encephalopathy (10/04/23) Essential (primary) hypertension (10/04/23) Pneumonia, unspecified organism (10/04/23) Acute respiratory failure with hypoxia (10/04/23) Physical Therapy Inpatient Evaluation/Re-Eval M1 PT/OT-IP Prior Functional Status Start: 10/08/23 13:24 Freq: NEEDED Status: Active Protocol: Document 10/08/23 11:55 AB (Rec: 10/08/23 13:37 AB [id number]) Medical Review Prior Functional Status Medical History Reviewed Yes Communication able to answer question but does not make much eye contact and usually has his eyes closed Mobility and Gait pt stated that he was independent with all mobilities and ambulation without AD Social History Household Members spouse,children Living Arrangements House Number of Floors (Floors) One Floor Number of Stairs To Enter/Railing? 2 steps without rails to enter the house pt stated that he lives at [facility] Home Environment Standard Height Toilet,Walk in Shower Home Equipment Hand Held Shower,Grab Bars Near Toilet Additional Social History Comment pt lives with spouse and daughter: daughter assists pt as needed; will not be able to assist pt pt stated that he has bilateral bed rails at home M2 PT-IP Current Condition Start: 10/08/23 13:24 Freq: NEEDED Status: Active Protocol: Document 10/08/23 11:55 AB (Rec: 10/08/23 13:37 AB [id number]) Physical Therapy Current Condition Current Condition Evaluation Date 10/08/23 Treatment Diagnosis sepsis; PNA; difficulty in walking Onset Date 10/04/23 M3 PT-IP Subjective Start: 10/08/23 13:24 Freq: NEEDED Status: Active Protocol: Document 10/08/23 11:55 AB (Rec: 10/08/23 13:37 AB [id number]) Subjective Physical Therapy Visit Type Type Initial Evaluation Visit Start Time 11:55 Visit Stop Time 12:30 Number of ACOUSTICAL TILE DRILL PRESS OPERATOR Visits 0 Physical Therapy Visit Comments Patient Comments agreeable to do PT Therapy Pain Assessment Pain Present Pain Present Denied Pain M4 PT-IP Mobility and Gait Start: 10/08/23 13:24 Freq: NEEDED Status: Active Protocol: Document 10/08/23 11:55 AB (Rec: 10/08/23 13:37 AB [id number]) PT-Bed Mobility Assessment Supine to Sit Supine to Sit Standby Assistance,Bedrails Sit to Supine Sit to Supine Standby Assistance,Bedrails PT-Transfer Assessment Sit to and From Stand Sit to and from Stand Minimal Assistance,1 Person Assistance,Use of Upper Extremities Equipment Transfer Assistive Device Gait Belt,Front Wheeled Walker Orthotic/Prosthetic Devices or Brace: No Transfers Transfer Destination Bed,Chair Transfer Technique ambulated Transfer Ability Level of Assist Minimal Assistance,1 Person Assistance,Use of Upper Extremities Comments Mobility Comments pt sitting on the chair. agreed to do PT. obtained PLOF and home set up from pt. O2 at 87-90% with 1-2L/min O2 supplement. pt completed sit to stand min A and cues. pt ambulated in room ~ 20 ft and sat on EOB. pt needs increase time to respond to instructions. pt completed sit<>supine SBA using bed rail to assist. (+) SOB with O2 sat: 89-90%. pt completed sit to stand from EOB min A and max cues and ambulated to the chair using fWW min A. pt tends to move FWW too far forward and cued for proper placement. pt sat back on chair. O2 sat checked: 93-94% . positioned pt on the chair and lunch tray set up. call light within reach. Gait Assessment Gait Gait Assistance Required: Minimum Assistance Distance (Feet) 20 Able to Maintain Weight Bearing Status Yes During Gait Assistive Devices Assistive Device Gait Belt,Front Wheeled Walker Orthotic/Prosthetic Devices or Brace: No Gait Deviations General Gait Pattern Decreased Stride Length, Decreased Feet Clearance Factors Limiting Gait Function Factors Limiting Gait Function Decreased Activity Tolerance, Decreased Strength,Difficulty Following Directions,Poor Balance,Poor Safety Awareness PT-Balance Assessment Sitting Balance and Reactions Static Sitting Balance Ability Normal Dynamic Sitting Balance Ability Good Standing Balance and Reactions Static Standing Balance Ability Fair Dynamic Standing Balance Ability Fair Device Used FWW M5 PT-IP Objective Assessments Start: 10/08/23 13:24 Freq: NEEDED Status: Active Protocol: Document 10/08/23 11:55 AB (Rec: 10/08/23 13:37 AB [id number]) Orientation Orientation/Cognition Level of Alertness Alert Orientation Name,Place Safety Awareness Decreased Safety Awareness Memory Description Short Term Impaired Gross Range of Motion Lower Extremity ROM Assessment Within Functional Limits Strength Lower Extremity Strength Hip 4-/5 Knee 4-/5 Muscle Tone Muscle Tone WNL Yes M6 PT-IP Treatment Start: 10/08/23 13:24 Freq: NEEDED Status: Active Protocol: Document 10/08/23 11:55 AB (Rec: 10/08/23 13:37 AB [id number]) Physical Therapy Treatment Education Education Provided Safety M7 PT-IP Assessment and Plan Start: 10/08/23 13:24 Freq: NEEDED Status: Active Protocol: Document 10/08/23 11:55 AB (Rec: 10/08/23 13:37 AB [id number]) PT Summary Assessment and Plan Potential Rehabilitation Potential Fair Status of Condition at Evaluation Evolving Summary Impairments Pain,ROM,Strength,Balance, Coordination,Sensation,Tone, Cognition,Bed Mobility, Transfers,Gait,Activity Tolerance Assessment Summary pt is an 88 y/o M who presentd with SOB. pt with recent Covid but nurse today stated that pt is testing negative. pt admitted fro sepsis; aspiration PNA. pt requiring min A for transfers and ambulation using FWW. d/c plan depending if pt's daughter will be able to provide assistance to pt. pt will require 24/7 assist at this time and may benefit from SNF rehab. d/c plan depending on progress. will continue to assess. Goals Bed Mobility Goal Independent Transfer Goal Independent,Front Wheeled Walker Gait Goal Independent,Front Wheel Walker Gait Distance 250 Other Goals improve transfers and ambulation using LRAD/without AD 300 ft mod I up/down 2 steps without AD SBA Days to Meet Goals 10 Frequency of Treatment Frequency Of Treatment Once a Day Treatment Plan Physical Therapy Treatment Plan Bed Mobility Training,Transfer Training,Gait Training, Therapeutic Exercise,Balance Retraining,Discharge Planning, Hot or Cold Pack,Neuromuscular Re-ed,Coordination Retraining Precautions Other Precautions O2 sat; falls Recommendations To Nursing Amount of Assist Needed 1 Person Assist Discharge Recommendations PT Discharge Recommendations Home with 24/7 Assist Available,Home Health,SNF Rehab,Home vs SNF Equipment Needed for Home Before FWW if pt goes home Discharge Transportation Needs at Discharge Private Vehicle,Wheelchair/ Cabulance
--- NOTE | 2023-10-08 13:22 | CM.DPNOTE ---
DCP Cont Patient discussed in multidisciplinary rounds this morning. Dr Aiken reports patient has made improvement, therapy to see today. Dr Aiken anticipates patient will need SNF upon discharge and requests this [facility] start this coordination. Met w/patient to review discharge plan; patient keeps eyes closed, does not participate in conversation this visit. Patient gives this [facility] permission to call carlos Mejia for planning purposes. Spoke with carlos Mejia P [phone] (cell); reviewed discharge options. Jackie explains that she has been working with the DC maintenance planner at [facility] re her mom Cecilia and the DC maintenance planner has sent referrals to both [facility] and [facility]. Jackie reports it would be ideal for her mom and dad to discharge to the same SNF and room together. Emailed Jackie the link for medicare.gov per her request so that she could review star ratings. Emailed Lucero at [facility] patient's referral and discussed referral with Gloria at [facility]. Jackie calls back to update that she has spoken with her dad and mom about plan for SNF and both agreeable, both eager to see each other. Patient/family first choice 1. [facility] 2. [facility] Explained to both Gloria ([facility]) and Lucero ([facility]) that Jackie's first choice for her parents is [facility] so that she can visit more readily and get her parents home more easily upon discharge from SNF. Gloria waiting to review therapy notes for patient although anticipates she can accept both patient and his Cecilia (once she gets more clinical from [facility]). CM team following closely for coordination. PASRR done. Plan: Discharge likely to [facility] via cabulance if accepted and spouse Cecilia also accepted. Keep carlos Mejia updated; patient's cognition seems to wax and wane. JW
[2023-10-08 15:21] LABS: Add Manual Diff / Slide Review NO; Basophils Absolute Auto 100 /uL (0-100); Basophils Percent Auto 1.2 % (0-2); Eosinophils Absolute Auto 300 /uL (0-450); Eosinophils Percent Auto 3.2 % (2-4); Hematocrit 36.8 % (41-53); Hemoglobin 12.1 g/dL (13.5-17.5); Lymphocytes Absolute Auto 1400 /uL (1100-4500); Lymphocytes Percent Auto 15.3 % (25-40); Mean Corpuscular HGB Conc 32.8 % (30-36); Mean Corpuscular Hemoglobin 29.8 PG (26-34); Mean Corpuscular Volume 90.9 fL (80-100); Monocytes Absolute Auto 700 /uL (0-900); Monocytes Percent Auto 7.3 % (3-14); Neutrophils Absolute Auto 6600 /uL (1500-7000); Platelet Count 326 X10^3/uL (150-400); Red Blood Cell Count 4.05 X10^6/uL (4.5-5.9); Red Cell Distribution Width 13.5 % (11.6-14.8); White Blood Cell Count 9.1 X10^3/uL (4.5-11.0)
[2023-10-08 15:34] LABS: BUN Creatinine Ratio 11.4 (6-22); Blood Urea Nitrogen 10 mg/dL (9-20); Calcium 9.8 mg/dL (8.4-10.2); Carbon Dioxide 36 mmol/L (22-32); Chloride 97 mmol/L (98-107); Estimated Glomerular Filt Rate > 60 mL/min (>60); Glucose 165 mg/dL (80-110); HEMOLYSIS < 15 (0-50); Magnesium 2.2 mg/dL (1.6-2.3); Potassium 4.3 mmol/L (3.4-5.1); Sodium 132 mmol/L (137-145)
--- NOTE | 2023-10-08 16:28 | P.PN_ITS ---
Subjective Subjective Interval history: 88-year-old gentleman with hypertension, diabetes mellitus, recent COVID infection 1 month ago who was admitted with aspiration pneumonia and altered mental status. Patient reports he is feeling better overall. Looking forward to getting up with physical therapy. He denies any shortness a breath. Denies any significant chest pain, nausea, or abdominal pain.. Exam Vital Signs (past 8 hours): - 10/08/23 10:55 10/08/23 10:56 10/08/23 15:17 Pulse Rate 94 H 91 H Respiratory Rate 20 22 Pulse Oximetry 82 L 93 93 Oxygen Delivery Method Room Air Nasal Cannula Nasal Cannula Oxygen Flow Rate 1 1.5 Fraction of Inspired Oxygen 28 SaO2/FiO2 Ratio 346 Oxygen Delivery Method Nasal Cannula Oxygen Flow Rate 1.5 Narrative Exam Narrative: GEN: Pleasant elderly male, Alert and oriented x 3, NAD HEENT:NC, Face symmetric CHEST: Respiratory excursions symmetric, worse but CTAB CV: RRR, no M/R/G ABD: Soft, NT/ND, BT present in all 4 quadrants, no organomegaly or masses EXTR: warm, well perfused, no C/C/1+ bilateral extremity generalized edema SKIN: warm and dry, no rash NEURO: Alert and oriented x 3, nonfocal Objective Labs 10/08/23 15:13 10/08/23 15:13 Labs: Laboratory Results - last 24 hr 10/08/23 15:13 WBC 9.1 RBC 4.05 L Hgb 12.1 L Hct 36.8 L MCV 90.9 MCH 29.8 MCHC 32.8 RDW 13.5 Plt Count 326 Neut % (Auto) 73.0 Lymph % (Auto) 15.3 L [place] % (Auto) 7.3 Eos % (Auto) 3.2 Baso % (Auto) 1.2 Neut # (Auto) 6600 Lymph # (Auto) 1400 [place] # (Auto) 700 Eos # (Auto) 300 Baso # (Auto) 100 Sodium 132 L Potassium 4.3 Chloride 97 L Carbon Dioxide 36 H BUN 10 Creatinine 0.88 Estimated GFR > 60 BUN/Creatinine Ratio 11.4 Glucose 165 H Calcium 9.8 Magnesium 2.2 PFSH Social History household members: spouse and children Smoking Status: Former smoker alcohol intake: never Assessment & Plan Assessment & Plan narrative: 1. Aspiration pneumonia Patient remains on Zosyn therapy. Antibiotics are planned for a total of 5 days. He is showing gradual improvement. White blood cell count is down to 8.3 from 12.8. He is afebrile. Oxygen need is 2 L. 2. Recent COVID infection He was positive August 29. No need for isolation precautions 3. Parapneumonic effusion Present on admission. Will monitor. 4. Acute hypoxic respiratory failure Unit is improved from 4 liters/minute down to 2 liters/minute this morning 5. Hypovolemic hyponatremia Sodium is improving up today. 6. Sacral decubitus ulcer Offload as much as possible and continue local wound care. 7. Acute metabolic encephalopathy with chronic cognitive impairment Improved. He is more verbal and interactive today. Code status Full Prophylaxis Continue Lovenox Disposition Patient reported to his nurse that he is adamant he will not discharge to [facility] facility. His is presently admitted at [facility].
[2023-10-09] VITALS (13 sets, daily range): BP systolic 116–159; BP diastolic 68–85; PULSE 92–104; RESP 19–22; TEMP 36.2–37.5; O2SAT 88–93
[2023-10-09] MEDS: PIPERACILLIN/TAZO 3.375 GM in SODIUM CHLORIDE 0.9% 100 ML IV ×3 (04:09→20:39)
[2023-10-09 05:32] LABS: Add Manual Diff / Slide Review NO; Basophils Absolute Auto 100 /uL (0-100); Basophils Percent Auto 1.3 % (0-2); Eosinophils Absolute Auto 400 /uL (0-450); Eosinophils Percent Auto 4.9 % (2-4); Hematocrit 35.2 % (41-53); Hemoglobin 11.7 g/dL (13.5-17.5); Lymphocytes Absolute Auto 2000 /uL (1100-4500); Lymphocytes Percent Auto 26.3 % (25-40); Mean Corpuscular HGB Conc 33.2 % (30-36); Mean Corpuscular Hemoglobin 29.8 PG (26-34); Mean Corpuscular Volume 89.8 fL (80-100); Monocytes Absolute Auto 700 /uL (0-900); Neutrophils Absolute Auto 4500 /uL (1500-7000); Neutrophils Percent Auto 58.5 % (50-75); Platelet Count 325 X10^3/uL (150-400); Red Blood Cell Count 3.92 X10^6/uL (4.5-5.9); Red Cell Distribution Width 13.6 % (11.6-14.8); White Blood Cell Count 7.6 X10^3/uL (4.5-11.0)
[2023-10-09 05:46] LABS: BUN Creatinine Ratio 9.1 (6-22); Blood Urea Nitrogen 7 mg/dL (9-20); Calcium 9.2 mg/dL (8.4-10.2); Carbon Dioxide 34 mmol/L (22-32); Chloride 99 mmol/L (98-107); Estimated Glomerular Filt Rate > 60 mL/min (>60); Glucose 139 mg/dL (80-110); HEMOLYSIS < 15 (0-50); Magnesium 2.3 mg/dL (1.6-2.3); Sodium 133 mmol/L (137-145)
[2023-10-09] MEDS: INSULIN LISPRO 100 UNIT/ML 3ML VIAL SUBCUT ×4 (07:38→20:39)
[2023-10-09] MEDS: ENOXAPARIN 40 MG/0.4 ML SYRINGE SUBCUT (09:16)
[2023-10-09] MEDS: ASPIRIN EC 81 MG TABLET PO (09:16)
[2023-10-09] MEDS: SODIUM CHLORIDE 0.9% FLUSH 10 ML IV ×2 (09:17→20:42)
--- NOTE | 2023-10-09 11:00 | PT.IPTN ---
Current Diagnoses Type 2 diabetes mellitus without complications (10/04/23) Hypo-osmolality and hyponatremia (10/04/23) Metabolic encephalopathy (10/04/23) Essential (primary) hypertension (10/04/23) Pneumonia, unspecified organism (10/04/23) Acute respiratory failure with hypoxia (10/04/23) Physical Therapy Treatment Note M2 PT-IP Current Condition Start: 10/08/23 13:24 Freq: NEEDED Status: Active Protocol: Document 10/08/23 11:55 AB (Rec: 10/08/23 13:37 AB [id number]) Physical Therapy Current Condition Current Condition Evaluation Date 10/08/23 Treatment Diagnosis sepsis; PNA; difficulty in walking Onset Date 10/04/23 M3 PT-IP Subjective Start: 10/08/23 13:24 Freq: NEEDED Status: Active Protocol: Document 10/09/23 10:42 KS (Rec: 10/09/23 12:27 KS [id number]) Subjective Physical Therapy Visit Type Type Treatment Note Visit Start Time 10:42 Visit Stop Time 11:00 Number of CRIME SPECIALIST Visits 1 Physical Therapy Visit Comments Patient Comments agreeable to do PT, want to go back to bed. Therapy Pain Assessment Pain Present Pain Present Denied Pain M4 PT-IP Mobility and Gait Start: 10/08/23 13:24 Freq: NEEDED Status: Active Protocol: Document 10/09/23 10:42 KS (Rec: 10/09/23 12:27 KS [id number]) PT-Bed Mobility Assessment Sit to Supine Sit to Supine Minimal Assistance,1 Person Assistance Scooting Scooting to Edge of Bed Standby Assistance PT-Transfer Assessment Sit to and From Stand Sit to and from Stand Minimal Assistance,1 Person Assistance,Use of Upper Extremities Equipment Transfer Assistive Device Gait Belt,Front Wheeled Walker Orthotic/Prosthetic Devices or Brace: No Transfers Transfer Destination Bed Transfer Technique ambulated Transfer Ability Level of Assist Contact Guard Assistance, Minimal Assistance,1 Person Assistance,Use of Upper Extremities Comments Mobility Comments Pt in chair upon arrival, reports feeling cold and tired and would like to go back to bed. O2 94% on 2L. Pt required CGA to Min A for sit<>stand w / FWW and 5 ft ambulation to bed. Pt refused further ambulation, marching in place, or exercises. Required Min A for sit<>sup, left in bed w/ all needs in reach. Gait Assessment Gait Gait Assistance Required: Contact Guard Assist,Minimum Assistance,1 Person Assist Distance (Feet) 6 Able to Maintain Weight Bearing Status Yes During Gait Assistive Devices Assistive Device Gait Belt,Front Wheeled Walker Orthotic/Prosthetic Devices or Brace: No Gait Deviations General Gait Pattern Decreased Stride Length, Decreased Feet Clearance Factors Limiting Gait Function Factors Limiting Gait Function Decreased Activity Tolerance, Decreased Strength,Difficulty Following Directions,Poor Balance,Poor Safety Awareness PT-Balance Assessment Sitting Balance and Reactions Static Sitting Balance Ability Normal Dynamic Sitting Balance Ability Good Standing Balance and Reactions Static Standing Balance Ability Fair Dynamic Standing Balance Ability Fair Device Used FWW M5 PT-IP Objective Assessments Start: 10/08/23 13:24 Freq: NEEDED Status: Active Protocol: Document 10/08/23 11:55 AB (Rec: 10/08/23 13:37 AB [id number]) Orientation Orientation/Cognition Level of Alertness Alert Orientation Name,Place Safety Awareness Decreased Safety Awareness Memory Description Short Term Impaired Gross Range of Motion Lower Extremity ROM Assessment Within Functional Limits Strength Lower Extremity Strength Hip 4-/5 Knee 4-/5 Muscle Tone Muscle Tone WNL Yes M6 PT-IP Treatment Start: 10/08/23 13:24 Freq: NEEDED Status: Active Protocol: Document 10/09/23 10:42 KS (Rec: 10/09/23 12:27 KS [id number]) Physical Therapy Treatment Education Education Provided Safety M7 PT-IP Assessment and Plan Start: 10/08/23 13:24 Freq: NEEDED Status: Active Protocol: Document 10/09/23 10:42 KS (Rec: 10/09/23 12:27 KS [id number]) PT Summary Assessment and Plan Potential Rehabilitation Potential Fair Summary Impairments Pain,ROM,Strength,Balance, Coordination,Sensation,Tone, Cognition,Bed Mobility, Transfers,Gait,Activity Tolerance Progress Towards Goals Slow Progress due to Activity Tolerance Assessment Summary Pt limited by fatgiue today, requires CGA to Min A for trnsfers and short distance ambulation w/ FWW> Denied SOB during mobility. D/c plan depending if pt's daughter will be able to provide assistance to pt. pt will require 24/7 assist at this time and may benefit from SNF rehab. d/c plan depending on progress. will continue to assess. Goals Bed Mobility Goal Independent Transfer Goal Independent,Front Wheeled Walker Gait Goal Independent,Front Wheel Walker Gait Distance 250 Other Goals improve transfers and ambulation using LRAD/without AD 300 ft mod I up/down 2 steps without AD SBA Days to Meet Goals 10 Frequency of Treatment Frequency Of Treatment Once a Day Treatment Plan Physical Therapy Treatment Plan Bed Mobility Training,Transfer Training,Gait Training, Therapeutic Exercise,Balance Retraining,Discharge Planning, Hot or Cold Pack,Neuromuscular Re-ed,Coordination Retraining Precautions Other Precautions O2 sat; falls Recommendations To Nursing Amount of Assist Needed 1 Person Assist Discharge Recommendations PT Discharge Recommendations Home with 15/11 Assist Available,Home Health,SNF Rehab,Home vs SNF Equipment Needed for Home Before FWW if pt goes home Discharge Transportation Needs at Discharge Private Vehicle,Wheelchair/ Cabulance
[2023-10-09 11:20] LABS: Clostridium Difficile Tox PCR Negative for C. diff (Negative)
[2023-10-09] MEDS: ALBUTEROL/IPRATROPIUM 3 ML AMPUL INH ×3 (11:20→19:35)
--- NOTE | 2023-10-09 12:38 | CM.DPC ---
DCP Cont. Reviewed EMR and team rounds for status updates. Spoke to Jackie pt's dtr, re: plan for her mother to be admitted to [facility] either Tuesday or Tuesday. Called [facility] and confirmed that pt's C-diff screen turned out negative, they can go ahead and accept him for Tuesday. Will need to call in the am to and confirm transport time.
--- NOTE | 2023-10-09 17:47 | PM.PN.1 ---
Subjective Subjective Interval history: Patient's O2 weaned to 1.5L today. He was told his daughter would prefer he go to a SNF but he would prefer to go home. He has no other complaints. Exam Vital Signs (past 8 hours): - 10/09/23 11:20 10/09/23 11:36 10/09/23 11:36 Temperature Pulse Rate 92 H 96 H Respiratory Rate 22 Blood Pressure 135/77 Pulse Oximetry 88 L 89 L Oxygen Delivery Method Room Air Oxygen Flow Rate 10/09/23 11:41 10/09/23 11:42 10/09/23 15:06 Temperature 97.2 F L Pulse Rate 103 H Respiratory Rate 22 Blood Pressure Pulse Oximetry 92 Oxygen Delivery Method Nasal Cannula Oxygen Flow Rate 2 1.5 Fraction of Inspired Oxygen 28 SaO2/FiO2 Ratio 346 Oxygen Delivery Method Nasal Cannula Oxygen Flow Rate 1.5 Narrative Exam Narrative: GEN: Pleasant elderly male, Alert and oriented x 3, NAD HEENT:NC, Face symmetric CHEST: Respiratory excursions symmetric, CTAB CV: RRR, no M/R/G ABD: Soft, NT/ND, BT present in all 4 quadrants, no organomegaly or masses EXTR: warm, well perfused, no C/C/1+ bilateral extremity generalized edema SKIN: warm and dry, no rash NEURO: Alert and oriented x 3, nonfocal Objective Labs 10/09/23 04:21 10/09/23 04:21 Labs: Laboratory Results - last 24 hr 10/09/23 10/09/23 04:21 10:20 WBC 7.6 RBC 3.92 L Hgb 11.7 L Hct 35.2 L MCV 89.8 MCH 29.8 MCHC 33.2 RDW 13.6 Plt Count 325 Neut % (Auto) 58.5 Lymph % (Auto) 26.3 Hudspeth % (Auto) 9.0 Eos % (Auto) 4.9 H Baso % (Auto) 1.3 Neut # (Auto) 4500 Lymph # (Auto) 2000 Hudspeth # (Auto) 700 Eos # (Auto) 400 Baso # (Auto) 100 Sodium 133 L Potassium 4.0 Chloride 99 Carbon Dioxide 34 H BUN 7 L Creatinine 0.77 Estimated GFR > 60 BUN/Creatinine Ratio 9.1 Glucose 139 H Calcium 9.2 Magnesium 2.3 C. difficile Tox (PCR) Negative for c. diff [facility] Social History household members: spouse and children Smoking Status: Former smoker alcohol intake: never Assessment & Plan Assessment & Plan narrative: 1. Aspiration pneumonia Patient remains on Zosyn therapy. Antibiotics are planned for a total of 5 days. He is showing gradual improvement. White blood cell count is now normal. He is afebrile. Oxygen now at 1.5L. 2. Recent COVID infection He was positive August 29. No need for isolation precautions 3. Parapneumonic effusion Present on admission. Will monitor. 4. Acute hypoxic respiratory failure Improving now at 1.5L. 5. Hypovolemic hyponatremia Sodium 133. Monitor. 6. Sacral decubitus ulcer Offload as much as possible and continue local wound care. 7. Acute metabolic encephalopathy with chronic cognitive impairment Improved. He is more verbal and interactive now. Code status Full Prophylaxis Continue Lovenox Disposition Patient reported to his nurse that he is adamant he will not discharge to [facility] facility. His is presently admitted at [facility]. Plan is home with on 10/09.
[2023-10-10] VITALS: BP 127/73; PULSE 97; RESP 20; TEMP 36.4; O2SAT 94
[2023-10-10 04:00] VITALS: BP 131/84; PULSE 87; RESP 18; TEMP 36.7; O2SAT 93
[2023-10-10] MEDS: PIPERACILLIN/TAZO 3.375 GM in SODIUM CHLORIDE 0.9% 100 ML IV (04:16)
[2023-10-10 07:36] VITALS: PULSE 99; RESP 18; O2SAT 91
[2023-10-10] MEDS: ALBUTEROL/IPRATROPIUM 3 ML AMPUL INH (07:36)
[2023-10-10 08:00] VITALS: BP 131/67; PULSE 98; RESP 22; TEMP 36.2; O2SAT 93
[2023-10-10] MEDS: ASPIRIN EC 81 MG TABLET PO (08:50)
[2023-10-10] MEDS: ENOXAPARIN 40 MG/0.4 ML SYRINGE SUBCUT (08:51)
[2023-10-10] MEDS: SODIUM CHLORIDE 0.9% FLUSH 10 ML IV (08:51)
[2023-10-10] MEDS: INSULIN LISPRO 100 UNIT/ML 3ML VIAL SUBCUT (08:51)
--- NOTE | 2023-10-10 09:01 | P.DS_ITS ---
History of Present Illness History of Present Illness Chief complaint: Full code Narrative: From night doctor: 88 y/o with PMH of HTN, DM, VTE and recent COVID, had course of Paxlovid a month ago, who presented to [facility] ED with EMS called by patient's daughter. She reported on him having worsening cough and shortness of breath in the last several days, being confused, taking his 's oxygen. Today his was medevac to another hospital with pneumonia and respiratory failure. He was requiring 4 L of oxygen in the ED and I was asked to directly admit him to ICU for pending respiratory failure. On admission he is unreliable historian, likely encephalopathic, tachypneic and tachycardic but not hypotensive. Additional information: The patient really is unable to provide any additional information. He has not sure if he was in the hospital currently were at home. He can not really speak to his current symptoms or what has been happening recently. He appears chronically ill, dehydrated, and comfortable on 2 L of oxygen with nonlabored breathing. Discharge Providers Provider Date of admission: 10/04/23 03:40 Discharge Date: 10/10/23 Primary care physician: Pilar Little MD Consults: 10/05/23 14:13 Consult to Speech Therapy Evaluate & Treat Comment: Physician Instructions: Evaluate and treat 10/07/23 15:44 Consult to Occupational Therapy Evaluate & Treat Comment: Physician Instructions: Evaluate and treat Consult to Physical Therapy Evaluate & Treat Comment: Physician Instructions: Evaluate and Treat Discharge provider: Rojelio Hudson DO Summary Hospital Course Discharge Diagnosis: 1. Aspiration pneumonia Completed course of IV abx. PRE OWNED SALES CONSULTANT recommended pureed diet and supervision while feeding. 2. Recent COVID infection He was positive August 29. No need for isolation precautions 3. Parapneumonic effusion Present on admission. Will monitor. 4. Acute hypoxic respiratory failure, improving Continues on 2L. 5. Hypovolemic hyponatremia Sodium 133. Monitor. 6. Sacral decubitus ulcer Offload as much as possible and continue local wound care with borderfoam dressing. 7. Acute metabolic encephalopathy with chronic cognitive impairment Improved. He is more verbal and interactive now. Hospital Course: Admitted for acute hypoxia, dsypnea, and cough due to presumed aspiration PNA. Received IV abx and PRE OWNED SALES CONSULTANT eval which recommended pureed diet. His breathing improved and he was weaned down to 2L NC. He was discharged to SNF where his will also be, as she is coming from a hospitalization at [facility]. Exam Vital Signs (past 8 hours): - 10/10/23 04:00 10/10/23 07:00 10/10/23 07:36 Temperature 98.1 F Pulse Rate 87 99 H Respiratory Rate 18 18 Blood Pressure 131/84 Pulse Oximetry 93 91 Oxygen Delivery Method Nasal Cannula Nasal Cannula Oxygen Flow Rate 1.5 10/10/23 08:00 Temperature 97.1 F L Pulse Rate 98 H Respiratory Rate 22 Blood Pressure 131/67 Pulse Oximetry 93 Oxygen Delivery Method Oxygen Flow Rate 2 Fraction of Inspired Oxygen 28 SaO2/FiO2 Ratio 346 Oxygen Delivery Method Nasal Cannula Oxygen Flow Rate 2 Narrative Exam Narrative: GEN: Pleasant elderly male, Alert and oriented x 3, NAD HEENT:NC, Face symmetric CHEST: Respiratory excursions symmetric, CTAB CV: RRR, no M/R/G ABD: Soft, NT/ND, BT present in all 4 quadrants, no organomegaly or masses EXTR: warm, well perfused, no C/C/1+ bilateral extremity generalized edema SKIN: warm and dry, no rash NEURO: Alert and oriented x 3, nonfocal Objective Labs 10/09/23 04:21 10/09/23 04:21 Labs: Laboratory Results - last 24 hr 10/09/23 10:20 C. difficile Tox (PCR) Negative for c. diff [facility] Social History household members: spouse and children Smoking Status: Former smoker alcohol intake: never Discharge Plan Discharge Plan Patient Disposition: SNF Transfer to: [facility] Discharge orders & Medications Prescriptions: Continued TRIAMCINOLONE ACETONIDE (#ARISTOCORT) 0.1 applic TP BID Qty: 0 aspirin 81 MG tablet,delayed release (DR/EC) 81 mg PO QDAY Qty: 0 Patanol 0.1 % EYE-BOTH BID Follow up/Referrals: Pilar Little MD [Primary Care Provider] - 2 Weeks Discharge Health Status Multidrug resistant organism: No MDRO Diet/Activity/Treatments Diet: Regular Liquid consistency: Normal/Thin Food texture: Blenderized or pureed Oxygen: 1.5l Skin/Wound/Dressing Care Dressing: Sacral pressure ulcer, offload with border foam dressing. Special Rehabilitation Services Reason for rehabilitation: Recovery r/t decondition Rehab type: Physical therapy and Occupational therapy Visit Report/Discharge Packet Stand Alone Forms: Patient Portal/API Discharge Data Primary Care Provider: Pilar Little
--- NOTE | 2023-10-10 09:39 | CM.DPC ---
DCP Discharge SNF Per MD, pt is medically stable to discharge to SNF today and no identified barriers to discharge. HINA called [facility] admissions and confirmed they can accept pt today and working with Pennie Velez for when pt's spouse is stable for discharge from their facility to be in same room at [facility]. They can transport pt around 1145. HINA met bedside with pt and explained role and updated on plan of discharge above and he confirms he is agreeable. HINA updated bookmaker's clerk, THELMA, RN and provided number to call report. KELL lopez kindly faxed d/c packet with signed med list, no scripts needed, PASRR and orders. HINA left ms with Dtr. Plan: Patient to d/c to [facility] today at 1145 before safe return home with spouse and Dtr assist. [facility] Hardin
--- NOTE | 2023-10-10 11:58 | PC.NURSE ---
pt discharged to [facility]; report called to nurse at 1010; iv's x 2 to R arm removed intact; condom cath left intact per receiving facility request; belongings sent w/ pt
[2023-10-10 12:00] VITALS: BP 164/82; PULSE 102; RESP 20; TEMP 36.3; O2SAT 95
== END 2023-10-10 11:58 | DRG 871 ==
PROVIDERS: Hospitalist; Internal Medicine; Student in an Organized Health Care Education/Training Program; Admitting Provider Internal Medicine; PCP Family Medicine Geriatric Medicine; Referring Provider Internal Medicine; Visit Provider Internal Medicine
DX: A41.9 Sepsis, unspecified organism (principal); G93.41 Metabolic encephalopathy; J69.0 Pneumonitis due to inhalation of food and vomit; J96.01 Acute respiratory failure with hypoxia; E87.1 Hypo-osmolality and hyponatremia; E86.1 Hypovolemia; Z86.16 Personal history of COVID-19; I10 Essential (primary) hypertension; E11.9 Type 2 diabetes mellitus without complications; Z87.891 Personal history of nicotine dependence
CPT/HCPCS: 36415; 36600; 71045; 71275; 76604; 80048; 82805; 82962; 83036; 83605; 83735; 84300; 85025; 87493; 87797; 92526; 92610; 93005; 93010; 93306; 94640; 94760; 94762; 97162; 97530; J0696; J1650; J1815; J2543; Q9967